=== PATIENT | male | born 1955 ===

== ENCOUNTER 2021-01-28 20:38 | Emergency (ER) ==
[2021-01-28] MEDS ORDERED: Lidocaine 1% w/Epinephrine 1:100K 20 ML VIAL FS SCH (21:15)
[2021-01-28] MEDS ORDERED: Bacitracin 1 PK ONE (22:23)
[2021-01-28] MEDS ORDERED: Clindamycin 150 MG CAP ONE (22:23)
== END 2021-01-28 22:38 | disposition home or self-care (01) ==
LOC: ERS 20:38
DX: S01.311A Laceration without foreign body of right ear, initial encounter (principal); F17.220 Nicotine dependence, chewing tobacco, uncomplicated; W11.XXXA Fall on and from ladder, initial encounter
CPT/HCPCS: 96372; 99283